=== PATIENT | female | born 1970 | race Caucasian/White ===

== ENCOUNTER 2021-04-24 10:53 | Day surgery (SDC) | payer BC ==
[~2021-04-24] VITALS: Ht 175.3 cm; Wt 122.8 kg
[~2021-04-24 10:53] MED LIST: CALCIUM CIT 311 EACH PO; LYLLANA TD; PREMARIN0.45 MG PO
--- NOTE | 2021-04-24 11:30 | NUR ---
04/24/21 1130 Irene Hunter PT. TOOK SUTAB FOR PREP, CLEAR YELLOW
== END 2021-04-24 13:30 | disposition home or self-care (01) ==
LOC: ORSCSDS 10:53
PROVIDERS: Internal Medicine Gastroenterology
PROC: 0DBK8ZX Excision of Ascending Colon, Via Natural or Artificial Opening Endoscopic, Diagnostic (ICD-10-PCS; principal; 2021-04-24 12:30)
PROC: 0DB68ZX Excision of Stomach, Via Natural or Artificial Opening Endoscopic, Diagnostic (ICD-10-PCS; principal; 2021-04-24 12:30)
PROC: 0DBN8ZX Excision of Sigmoid Colon, Via Natural or Artificial Opening Endoscopic, Diagnostic (ICD-10-PCS; principal; 2021-04-24 12:30)
DX: K21.9 Gastro-esophageal reflux disease without esophagitis (principal); K29.80 Duodenitis without bleeding; K57.10 Diverticulosis of small intestine without perforation or abscess without bleeding; Z12.11 Encounter for screening for malignant neoplasm of colon; D12.2 Benign neoplasm of ascending colon; D12.5 Benign neoplasm of sigmoid colon; K57.30 Diverticulosis of large intestine without perforation or abscess without bleeding; K64.8 Other hemorrhoids; Z86.010 Personal history of colon polyps; Z80.0 Family history of malignant neoplasm of digestive organs
CPT/HCPCS: 88305; 88342; J2250; J2704; J7120

== ENCOUNTER 2023-06-03 06:36 | Day surgery (SDC) | payer BC ==
[~2023-06-03] VITALS: Ht 175.3 cm; Wt 119.5 kg
[2023-06-03] MEDS ORDERED: DOTTI1 EA19 (06:55)
[2023-06-03] MEDS ORDERED: OZEMPIC0.25 MG/0. (06:55)
[2023-06-03] MEDS ORDERED: ROSU5 (06:56)
[2023-06-03 08:59] VITALS: BP 128/68
--- NOTE | 2023-06-03 09:06 | NUR ---
06/03/23 0906 [facility] SITE WNL
== END 2023-06-03 09:10 | disposition home or self-care (01) ==
LOC: ORSCSDS 06:36
PROVIDERS: Student in an Organized Health Care Education/Training Program
PROC: 0DBN8ZX Excision of Sigmoid Colon, Via Natural or Artificial Opening Endoscopic, Diagnostic (ICD-10-PCS; principal; 2023-06-03 08:00)
PROC: 0DBL8ZX Excision of Transverse Colon, Via Natural or Artificial Opening Endoscopic, Diagnostic (ICD-10-PCS; principal; 2023-06-03 08:00)
DX: Z86.010 Personal history of colon polyps (principal); Z80.0 Family history of malignant neoplasm of digestive organs; D12.5 Benign neoplasm of sigmoid colon; D12.3 Benign neoplasm of transverse colon; K57.30 Diverticulosis of large intestine without perforation or abscess without bleeding; K64.8 Other hemorrhoids; K21.9 Gastro-esophageal reflux disease without esophagitis; Z79.899 Other long term (current) drug therapy; E66.9 Obesity, unspecified; Z68.38 Body mass index [BMI] 38.0-38.9, adult
CPT/HCPCS: 88305; J2704; J3010; J7120

== ENCOUNTER → 2023-06-05 | Outpatient (CLI) | payer BC ==
[~2023-06-05] MED LIST changes: +DOTTI1 EA19; +OZEMPIC0.25 MG/0.; +ROSU5
[2023-06-05 10:56] LABS: BASOPHILS ABSOLUTE AUTO 0.03 K/mm3 (0.00-0.23); BASOPHILS PERCENT AUTO 0 % (0-2); EOSINOPHILS ABSOLUTE AUTO 0.09 K/mm3 (0.00-0.68); EOSINOPHILS PERCENT AUTO 1 % (0-6); Hemoglobin 14.4 g/dL (11.5-16.0); IMMATURE GRAN ABSOLUTE AUTO 0.02 K/mm3 (0.00-0.10); IMMATURE GRAN PERCENT AUTO 0 % (0-1); LYMPHOCYTES ABSOLUTE AUTO 2.33 K/mm3 (0.84-5.20); LYMPHOCYTES PERCENT AUTO 30 % (21-46); MONOCYTES ABSOLUTE AUTO 0.56 K/mm3 (0.16-1.47); MONOCYTES PERCENT AUTO 7 % (4-13); Mean Corpuscular HGB Conc 34.3 g/dL (31.5-36.5); Mean Corpuscular Volume 88 fL (80-100); Mean Platelet Volume 11.7 fL (9.1-12.4); NEUTROPHILS ABSOLUTE AUTO 4.81 K/mm3 (1.96-9.15); NEUTROPHILS PERCENT AUTO 61 % (41-73); Platelet Count 224 K/mm3 (150-400); RDW Coefficient Variation 12.2 % (11.7-14.2); RDW Standard Deviation 39.5 fL (35.1-46.3); White Blood Cell Count 7.84 K/mm3 (4.00-11.30)
[2023-06-05 11:06] LABS: Albumin, Blood 3.7 g/dL (3.4-5.0); Bilirubin, Total 0.2 mg/dL (0.1-1.0); Bun/Creatinine Ratio 11.8 (12.0-20.0); Calcium, Blood 9.4 mg/dL (8.5-10.1); Creatinine, Blood 0.76 mg/dL (0.40-1.00); Globulin, Blood 3.8 g/dL (2.2-4.0); Potassium, Blood 4.1 mmol/L (3.5-5.5); Total Protein, Blood 7.5 g/dL (6.4-8.2)
== END | disposition home or self-care (01) ==
LOC: LAB 10:52 → LAB SHORT 10:52
PROVIDERS: Physician Assistant
DX: R10.31 Right lower quadrant pain (principal)
CPT/HCPCS: 80053; 83690; 85025